=== PATIENT | female | born 2000 | race Caucasian/White ===

== ENCOUNTER 2022-04-19 10:38 | Observation (INO) ==
[2022-04-19 11:22] LABS: Basophils # (auto) 0.02 K/uL (0-0.2); Basophils % (auto) 0.2 %; Eosinophils # (auto) 0.03 K/uL (0-0.50); Eosinophils % (auto) 0.3 %; Hematocrit (blood only) 40.1 % (34.1-44.9); Hemoglobin 13.6 g/dl (12.0-16.0); Immature Granulocytes # (auto) 0.03 K/uL (0.00-0.02); Immature Granulocytes % (auto) 0.3 %; Lymphocytes # (auto) 1.36 K/uL (1.2-3.4); Mean Corpuscular Hemoglobin 30.3 pg (25.0-34.0); Mean Corpuscular Hgb Conc 33.9 g/dL (32.0-36.0); Mean Corpuscular Volume 89.3 fL (80.0-100.0); Mean Platelet Volume 10.6 fL (9.4-12.3); Monocytes % (auto) 5.3 %; Neutrophils # (auto) 9.29 K/uL (1.4-6.5); Neutrophils % (auto) 81.9 %; Platelet Count 259 K/uL (130-400); RDW Standard Deviation 39.6 fL (36.4-46.3); Red Blood Count 4.49 M/uL (3.93-5.22); White Blood Count 11.33 K/ul (4.8-10.8)
[2022-04-19 11:28] LABS: Appearance Urine Clear (Clear); Bacteria Urine Automated 1+ (Negative); Bilirubin Urine Negative (Negative); Blood Urine Negative (Negative); Cast Urine Automated 0 /lpf (0-5); Color Urine Orange; Epithelial Cell Urine Auto >30 /lpf (0-5); Glucose Urine UA Negative (Negative); Ketones Urine Trace (Negative); Leukocyte Esterase Urine Trace (Negative); Nitrite Urine Negative (Negative); Protein Urine Negative (Negative); RBC Urine Automated 0-4 /hpf (0-4); Specific Gravity Urine 1.021 (1.000-1.030); Urobilinogen Urine Negative (Negative)
[2022-04-19 11:42] LABS: Albumin Globulin Ratio 1.5 (0.9-2); Albumin Level 4.6 gm/dl (3.4-5.0); BUN Creatinine Ratio 13.4 (10-20); Bilirubin,Total 1.2 mg/dl (0.2-1.0); Calcium 9.7 mg/dl (8.5-10.1); Creatinine Clr Calc Pharmacy 79.2 ml/min; Est GFR (African American) 96.8 ml/min; Est GFR (Non-African American) 83.5 ml/min; Globulin 3.1 gm/dl (2.5-4.0); Potassium 3.7 mmol/L (3.5-5.1); Total Protein 7.7 gm/dl (6.0-8.3)
[2022-04-19] MEDS ORDERED: SODIUM CHLORIDE 0.9% 1000ML 1,000 ML IV ONE (12:27)
--- NOTE | 2022-04-19 12:29 | Emergency Department Note ---
Impression & Plan Acute appendicitis with localized peritonitis, IBS (irritable bowel syndrome), Leukocytosis ED Provider Note NAME: MICHAEL JEROME AGE: 21 SEX: F : 2000 ARRIVES VIA: Walk-In INFORMANT: Patient ED PROVIDER(S): Kareem Addison DO CHIEF COMPLAINT: abdominal pain HPI: Patient is a 21-year-old female who presents ER for abdominal pain. It has been going on for the past several days. Initially started in the epigastric region and is now in the right lower quadrant. Denies any dysuria, urgency, or frequency. History of IBS. She does feel bloated. Last menstrual period was a week ago. No vaginal bleeding or vaginal discharge. Pain is a 5 out of 10 and constant. Is worse with movement and palpation. No other exacerbating or remitting factors. She has not eaten for nearly 24 hours as she is nauseated. ROS: See above HPI for pertinent positives & negatives. A total of 10 systems reviewed and were otherwise negative. PAST MEDICAL HISTORY:See Below PAST SURGICAL HISTORY:See Below FAMILY HISTORY:See Below SOCIAL HISTORY:See Below HOME MEDICATIONS:See Below ALLERGIES:See Below VITALS:See Below PHYSICAL EXAMINATION: GENERAL: Sitting up in bed, alert, well appearing, well nourished, no distress, non-toxic EYE EXAM: normal conjunctiva. OROPHARYNX: no exudate, no erythema, lips, buccal mucosa, and tongue normal and mucous membranes are moist NECK: supple, no nuchal rigidity, no adenopathy, non-tender LUNGS: Clear to auscultation. Normal chest wall mechanics HEART: no murmurs, S1 normal and S2 normal ABDOMEN: abdomen soft, TTP in RLQ, normo-active bowel sounds, no masses, no rebound or guarding. UPPER EXTREMITIES: upper extremities are grossly normal. LOWER EXTREMITIES: No pitting edema. NEURO EXAM: Normal sensorium, cranial nerves II-XII grossly intact, normal speech, no gross weakness of arms, no gross weakness of legs. MEDICAL DECISION MAKING: Patient is a 21-year-old female who presents ER for right lower quadrant abdominal pain. IV was established blood work was obtained. Labs show mild leukocytosis 11.3 thousand. No significant anemia. BMP along with LFTs and bilirubin was remarkable for slightly elevated T bili. Lipase was normal. UA was clean. was negative. COVID was negative. CT abdomen pelvis shows acute appendicitis. Patient declined pain medications. She was given IV fluids, Zofran and cefoxitin 2 g. She was discussed with Dr. Urbano Thao for further evaluation and taken to the OR for acute appendicitis. Triage Nursing notes reviewed. Limited review of prior medical records performed Vital Signs: reviewed and remarkable for no significant abnormalities Differential diagnosis: Differential diagnoses includes but is not limited to gastritis, peptic ulcer disease, GERD, gallbladder disease, pancreatitis, small bowel obstruction, acute coronary syndrome, pericarditis, ischemic bowel, irritable bowel disease, irritable bowel syndrome, appendicitis, diverticulitis, malignancy, hernia, urinary tract infection, torsion, /ectopic (if female), perforation, trauma, infectious. ER treatment provided: See below Diagnostics interpreted by me: ECG: none Cardiac Monitoring: An order was placed for continuous cardiac monitoring. The monitor shows a rate of 90 with sinus rhythm. Laboratory studies: As stated above and show below. Imaging studies: CT abdomen pelvis shows acute appendicitis Consultation(s): Discussed with Urbano Thao who evaluate the patient at bedside and took the patient to the OR Procedures: none Critical Care: None Past Med/Surg History Medical History (Updated 04/19/22 @ 15:54 by Kraeem Addison DO) IBS (irritable bowel syndrome) Surgical History (Updated 04/19/22 @ 14:52 by Shree Randle MD) No significant past surgical history Social History Smoking Status: Never smoker Preferred Language: Pashto Feels Safe at Home: Yes Results & Data (ED) Vital Signs Vital Signs - 24 hr 04/19/22 10:48 04/19/22 12:39 04/19/22 14:52 Temperature 36.8 C 36.7 C 36.9 C Temperature Source Temporal Artery Scan Oral Oral Pulse Rate 93 H Pulse Rate [Finger] 83 65 Pulse Rhythm [Finger] Regular Pulse Strength [Finger] Normal Respiratory Rate 20 18 18 Respiratory Effort / Characteristics Non-Labored Spontaneous Respiratory Depth Normal Respiratory Pattern Regular Blood Pressure 142/91 H Blood Pressure [Right Arm] 134/81 117/79 Blood Pressure Mean 108 Blood Pressure Mean [Right Arm] 98 91 Blood Pressure Position Sitting Blood Pressure Position [Right Arm] Semi-fowlers Pulse Oximetry 96 98 100 Oxygen Delivery Method Room Air Room Air Room Air Sepsis Recent Fever Within 48 Hours No Sepsis New/Unexplained Change in Mental Status No Sepsis Action Taken by Nursing No Action Required Laboratory Data Result diagrams: 04/19/22 11:07 04/19/22 11:07 Lab Results 04/19/22 04/19/22 04/19/22 Range/Units 11:07 11:07 11:07 WBC 11.33 H (4.8-10.8) K/ul RBC 4.49 (3.93-5.22) M/uL Hgb 13.6 (12.0-16.0) g/dl Hct 40.1 (34.1-44.9) % MCV 89.3 (80.0-100.0) fL MCH 30.3 (25.0-34.0) pg MCHC 33.9 (32.0-36.0) g/dL RDW Std Deviation 39.6 (36.4-46.3) fL RDW Coeff of Jayme 12.0 (11.5-14.5) % Plt Count 259 (130-400) K/uL MPV 10.6 (9.4-12.3) fL Immature Gran % (Auto) 0.3 % Neut % (Auto) 81.9 % Lymph % (Auto) 12.0 % [place] % (Auto) 5.3 % Eos % (Auto) 0.3 % Baso % (Auto) 0.2 % Neut # (Auto) 9.29 H (1.4-6.5) K/uL Lymph # (Auto) 1.36 (1.2-3.4) K/uL [place] # (Auto) 0.60 (0.24-0.82) K/uL Eos # (Auto) 0.03 (0-0.50) K/uL Baso # (Auto) 0.02 (0-0.2) K/uL Immature Gran # (Auto) 0.03 H (0.00-0.02) K/uL Sodium 137 (136-145) mmol/L Potassium 3.7 (3.5-5.1) mmol/L Chloride 101 (98-107) mmol/L Carbon Dioxide 28 (21-32) mmol/L Anion Gap 8 (3-11) BUN 13 (6-23) mg/dl Creatinine 0.97 (0.6-1.2) mg/dl Est Cr Clr Drug Dosing 79.2 ml/min Est GFR ( Amer) 96.8 ml/min Est GFR (Non-Af Amer) 83.5 ml/min BUN/Creatinine Ratio 13.4 (10-20) Glucose 84 (70-99(Fasting)) mg/dl Calcium 9.7 (8.5-10.1) mg/dl Total Bilirubin 1.2 H (0.2-1.0) mg/dl AST 21 (13-39) U/L ALT 14 (7-52) U/L Alkaline Phosphatase 36 (34-104) U/L Total Protein 7.7 (6.0-8.3) gm/dl Albumin 4.6 (3.4-5.0) gm/dl Globulin 3.1 (2.5-4.0) gm/dl Albumin/Globulin Ratio 1.5 (0.9-2) Lipase 11 (11-82) U/L Urine Color [place] Urine Appearance Clear (Clear) Urine pH 7.0 (4.5-7.5) Ur Specific [place] 1.021 (1.000-1.030) Urine Protein Negative (Negative) Urine Glucose (UA) Negative (Negative) Urine Ketones Trace H (Negative) Urine Blood Negative (Negative) Urine Nitrite Negative (Negative) Urine Bilirubin Negative (Negative) Urine Urobilinogen Negative (Negative) Ur Leukocyte Esterase Trace H (Negative) Urine WBC (Auto) 1-5 (0-5) /hpf Urine RBC (Auto) 0-4 (0-4) /hpf U Hyaline Cast (Auto) 0 (0-5) /lpf U Epithel Cells (Auto) >30 H (0-5) /lpf Urine Bacteria (Auto) 1+ H (Negative) POC Ur Test (NEG) SARS-CoV-2, RNA, NAAT (NEGATIVE) 04/19/22 04/19/22 Range/Units 11:07 13:44 WBC (4.8-10.8) K/ul RBC (3.93-5.22) M/uL Hgb (12.0-16.0) g/dl Hct (34.1-44.9) % MCV (80.0-100.0) fL MCH (25.0-34.0) pg MCHC (32.0-36.0) g/dL RDW Std Deviation (36.4-46.3) fL RDW Coeff of Jayme (11.5-14.5) % Plt Count (130-400) K/uL MPV (9.4-12.3) fL Immature Gran % (Auto) % Neut % (Auto) % Lymph % (Auto) % [place] % (Auto) % Eos % (Auto) % Baso % (Auto) % Neut # (Auto) (1.4-6.5) K/uL Lymph # (Auto) (1.2-3.4) K/uL [place] # (Auto) (0.24-0.82) K/uL Eos # (Auto) (0-0.50) K/uL Baso # (Auto) (0-0.2) K/uL Immature Gran # (Auto) (0.00-0.02) K/uL Sodium (136-145) mmol/L Potassium (3.5-5.1) mmol/L Chloride (98-107) mmol/L Carbon Dioxide (21-32) mmol/L Anion Gap (3-11) BUN (6-23) mg/dl Creatinine (0.6-1.2) mg/dl Est Cr Clr Drug Dosing ml/min Est GFR ( Amer) ml/min Est GFR (Non-Af Amer) ml/min BUN/Creatinine Ratio (10-20) Glucose (70-99(Fasting)) mg/dl Calcium (8.5-10.1) mg/dl Total Bilirubin (0.2-1.0) mg/dl AST (13-39) U/L ALT (7-52) U/L Alkaline Phosphatase (34-104) U/L Total Protein (6.0-8.3) gm/dl Albumin (3.4-5.0) gm/dl Globulin (2.5-4.0) gm/dl Albumin/Globulin Ratio (0.9-2) Lipase (11-82) U/L Urine Color Urine Appearance (Clear) Urine pH (4.5-7.5) Ur Specific [place] (1.000-1.030) Urine Protein (Negative) Urine Glucose (UA) (Negative) Urine Ketones (Negative) Urine Blood (Negative) Urine Nitrite (Negative) Urine Bilirubin (Negative) Urine Urobilinogen (Negative) Ur Leukocyte Esterase (Negative) Urine WBC (Auto) (0-5) /hpf Urine RBC (Auto) (0-4) /hpf U Hyaline Cast (Auto) (0-5) /lpf U Epithel Cells (Auto) (0-5) /lpf Urine Bacteria (Auto) (Negative) POC Ur Test NEG (NEG) SARS-CoV-2, RNA, NAAT NEGATIVE (NEGATIVE) Administered Medications Discontinued Medications Sodium Chloride (Nss 1000ml) 1,000 mls @ 999 mls/hr IV .Q1H1M ONE Stop: 04/19/22 13:27 Last Infusion: 04/19/22 14:07 Dose: 0 mls/hr Documented By: Admin: 04/19/22 12:33 Dose: 999 mls/hr Documented By: HEIDI Cefoxitin Sodium (Mefoxin) 2,000 mg in 60 mls @ 100 mls/hr IV NOW STA Stop: 04/19/22 14:02 Last Infusion: 04/19/22 14:07 Dose: 0 mls/hr Documented By: Admin: 04/19/22 13:42 Dose: 100 mls/hr Documented By: HEIDI Ioversol (Optiray 300 500ml) 100 ml IV ONCE ONE Stop: 04/19/22 13:01 Last Admin: 04/19/22 13:01 Dose: 90 ml Documented By: TASIA Imaging Data Radiologist's Impression: Abdomen/Pelvis CT 04/19/22 12:25 CT SCAN OF THE ABDOMEN AND PELVIS WITH IV CONTRAST CLINICAL HISTORY: Right lower quadrant abdominal pain. COMPARISON STUDY: No priors. TECHNIQUE: Following the IV administration of 90 cc of Optiray 300, CT scan of the abdomen and pelvis is performed from the lung bases to the proximal femora. Images are reviewed in the axial, sagittal, and coronal planes. IV contrast was administered without complication. A dose lowering technique was utilized adhering to the principles of ALARA. CT DOSE: 362.36 mGycm FINDINGS: Lung bases: The heart is normal in size and without pericardial effusion. The lung bases are clear. Liver: The contrast-enhanced liver is normal in size, contour, and attenuation. There is no intrahepatic biliary ductal dilatation. The hepatic veins and portal veins are patent. Gallbladder: Unremarkable. Spleen: Normal in size and attenuation. Pancreas: Unremarkable. Adrenal glands: Unremarkable. Kidneys: The contrast enhanced kidneys are normal in size and without hydronephrosis. The kidneys enhance symmetrically. Abdominal vasculature: The abdominal aorta is normal in course and caliber. Bowel: The small bowel and colon are normal in course and caliber. The appendix is dilated and fluid-filled, measuring up to 11 mm in diameter as seen on image #302. The appendiceal wall is thickened and hyperemic and there is periappendiceal inflammation. The appearance is typical for acute appendicitis. No organized fluid collection is seen to indicate abscess. Peritoneum: There is no intraperitoneal free air or abdominal ascites. There is a small fat-containing umbilical hernia. Lymphadenopathy: None. Pelvic viscera: The bladder, uterus, and adnexa are normal as visualized noting bilateral ovarian follicles. A small volume of free fluid is seen in the cul-de-sac. Skeletal structures: No lytic or blastic lesions are seen. IMPRESSION: 1. Findings are consistent with acute appendicitis. 2. There is no evidence of abscess or perforation. 3. Free fluid in cul-de-sac is nonspecific and likely within physiologic limits. ACT 112: Negative or not required by law. Electronically signed by: Mauricio Harden M.D. 04/19/2022 1:11 PM Discharge Plan Visit Data Chief Complaint: Abdominal Pain Stated Complaint: LRQ PAIN, VOMITING, PRIOR UPPDER ABDOM PAIN ED Provider: Kareem Addison Discharge Problem: Acute appendicitis with localized peritonitis, IBS (irritable bowel syndrome), Leukocytosis Discharge Instructions Interventions: ED Discharge Assessment Last Done: 04/19/22 14:35
[2022-04-19] MEDS ORDERED: OPTIRAY 300 500mL IV ONE (13:00)
--- NOTE | 2022-04-19 13:13 | CT Scan Report ---
CT SCAN OF THE ABDOMEN AND PELVIS WITH IV CONTRAST CLINICAL HISTORY: Right lower quadrant abdominal pain. COMPARISON STUDY: No priors. TECHNIQUE: Following the IV administration of 90 cc of Optiray 300, CT scan of the abdomen and pelvi s is performed from the lung bases to the proximal femora. Images are reviewed in the axial, sagittal , and coronal planes. IV contrast was administered without complication. A dose lowering technique wa s utilized adhering to the principles of ALARA. CT DOSE: 362.36 mGycm FINDINGS: Lung bases: The heart is normal in size and without pericardial effusion. The lung bases are clear. Liver: The contrast-enhanced liver is normal in size, contour, and attenuation. There is no intrahepa tic biliary ductal dilatation. The hepatic veins and portal veins are patent. Gallbladder: Unremarkable. Spleen: Normal in size and attenuation. Pancreas: Unremarkable. Adrenal glands: Unremarkable. Kidneys: The contrast enhanced kidneys are normal in size and without hydronephrosis. The kidneys enh ance symmetrically. Abdominal vasculature: The abdominal aorta is normal in course and caliber. Bowel: The small bowel and colon are normal in course and caliber. The appendix is dilated and fluid -filled, measuring up to 11 mm in diameter as seen on image #302. The appendiceal wall is thickened a nd hyperemic and there is periappendiceal inflammation. The appearance is typical for acute appendici tis. No organized fluid collection is seen to indicate abscess. Peritoneum: There is no intraperitoneal free air or abdominal ascites. There is a small fat-containin g umbilical hernia. Lymphadenopathy: None. Pelvic viscera: The bladder, uterus, and adnexa are normal as visualized noting bilateral ovarian fol licles. A small volume of free fluid is seen in the cul-de-sac. Skeletal structures: No lytic or blastic lesions are seen. IMPRESSION: 1. Findings are consistent with acute appendicitis. 2. There is no evidence of abscess or perforation. 3. Free fluid in cul-de-sac is nonspecific and likely within physiologic limits. ACT 112: Negative or not required by law. Electronically signed by: Mauricio Harden M.D. 04/19/2022 1:11 PM
[2022-04-19] MEDS ORDERED: cefOXitin 2,000 MG/60 ML BAG IV STA (13:27)
--- NOTE | 2022-04-19 14:21 | History & Physical Report ---
Date of Service April 19, 2022 Assessment & Plan (1) Acute appendicitis with localized peritonitis: Plan 21-year-old woman with acute appendicitis. I discussed with her the risks and benefits of laparoscopic appendectomy. We discussed the postoperative course and restrictions. All her questions were answered, and she is agreeable to proceed. We will take her to the operating room at the earliest convenience. Consent has been obtained. COVID test has been obtained. She has allergies to penicillin and Bactrim. History of Present Illness Primary Care Provider: Kvng Altman MD 21-year-old woman presents with 1 day history of upper abdominal pain subsequently localizing to the lower abdomen and specifically on the right. The pain started yesterday afternoon. It was accompanied by nausea and vomiting. It started fairly suddenly. Overnight it localized to the lower right side. Currently she has right-sided lower abdominal pain. She denies fevers and chills. She denies nausea at this time. Her last meal was 24 hours ago. White blood cell count 11. CT scan demonstrates acute appendicitis without perforation. She denies chest pain or shortness of breath. Past Med/Surg History Social History Smoking Status: Never smoker Preferred Language: Sudanese Feels Safe at Home: Yes Review of Systems Review of Systems: All systems reviewed & are unremarkable except as noted in HPI & below Physical Exam Constitutional: WD/WN, vitals as above Neck: trachea midline, no thyromegaly Respiratory: normal respiratory effort, lungs clear to auscultation Cardiovascular: RRR, no murmur, no edema Gastrointestinal (Abdomen): Inspection/Auscultation: abdomen normal to inspection; abdomen not distended Percussion/Palpation: + abdomen tender (Right lower quadrant, positive Rovsing sign) and abdomen soft; no guarding and abdomen not rigid Musculoskeletal: Extremities: no cyanosis and no clubbing Skin: no rashes, warm and dry Psychiatric: A+Ox3, euthymic affect Results & Data Results & Data ([facility]) Vital Signs (Past 12 Hours) Vital Signs Temp Pulse Resp BP Pulse Ox O2 Del Method 04/19/22 10:48 36.8 C 93 H 20 142/91 H 96 Room Air Laboratory Results 04/19/22 04/19/22 04/19/22 Range/Units 13:44 11:07 11:07 WBC (4.8-10.8) K/ul RBC (3.93-5.22) M/uL Hgb (12.0-16.0) g/dl Hct (34.1-44.9) % MCV (80.0-100.0) fL MCH (25.0-34.0) pg MCHC (32.0-36.0) g/dL RDW Std Deviation (36.4-46.3) fL RDW Coeff of Jayme (11.5-14.5) % Plt Count (130-400) K/uL MPV (9.4-12.3) fL Immature Gran % (Auto) % Neut % (Auto) % Lymph % (Auto) % [place] % (Auto) % Eos % (Auto) % Baso % (Auto) % Neut # (Auto) (1.4-6.5) K/uL Lymph # (Auto) (1.2-3.4) K/uL [place] # (Auto) (0.24-0.82) K/uL Eos # (Auto) (0-0.50) K/uL Baso # (Auto) (0-0.2) K/uL Immature Gran # (Auto) (0.00-0.02) K/uL Sodium (136-145) mmol/L Potassium (3.5-5.1) mmol/L Chloride (98-107) mmol/L Carbon Dioxide (21-32) mmol/L Anion Gap (3-11) BUN (6-23) mg/dl Creatinine (0.6-1.2) mg/dl Est Cr Clr Drug Dosing ml/min Est GFR ( Amer) ml/min Est GFR (Non-Af Amer) ml/min BUN/Creatinine Ratio (10-20) Glucose (70-99(Fasting)) mg/dl Calcium (8.5-10.1) mg/dl Total Bilirubin (0.2-1.0) mg/dl AST (13-39) U/L ALT (7-52) U/L Alkaline Phosphatase (34-104) U/L Total Protein (6.0-8.3) gm/dl Albumin (3.4-5.0) gm/dl Globulin (2.5-4.0) gm/dl Albumin/Globulin Ratio (0.9-2) Lipase (11-82) U/L Urine Color [place] Urine Appearance Clear (Clear) Urine pH 7.0 (4.5-7.5) Ur Specific [place] 1.021 (1.000-1.030) Urine Protein Negative (Negative) Urine Glucose (UA) Negative (Negative) Urine Ketones Trace H (Negative) Urine Blood Negative (Negative) Urine Nitrite Negative (Negative) Urine Bilirubin Negative (Negative) Urine Urobilinogen Negative (Negative) Ur Leukocyte Esterase Trace H (Negative) Urine WBC (Auto) 1-5 (0-5) /hpf Urine RBC (Auto) 0-4 (0-4) /hpf U Hyaline Cast (Auto) 0 (0-5) /lpf U Epithel Cells (Auto) >30 H (0-5) /lpf Urine Bacteria (Auto) 1+ H (Negative) POC Ur Test NEG (NEG) SARS-CoV-2, RNA, NAAT Pending 04/19/22 04/19/22 Range/Units 11:07 11:07 WBC 11.33 H (4.8-10.8) K/ul RBC 4.49 (3.93-5.22) M/uL Hgb 13.6 (12.0-16.0) g/dl Hct 40.1 (34.1-44.9) % MCV 89.3 (80.0-100.0) fL MCH 30.3 (25.0-34.0) pg MCHC 33.9 (32.0-36.0) g/dL RDW Std Deviation 39.6 (36.4-46.3) fL RDW Coeff of Jayme 12.0 (11.5-14.5) % Plt Count 259 (130-400) K/uL MPV 10.6 (9.4-12.3) fL Immature Gran % (Auto) 0.3 % Neut % (Auto) 81.9 % Lymph % (Auto) 12.0 % [place] % (Auto) 5.3 % Eos % (Auto) 0.3 % Baso % (Auto) 0.2 % Neut # (Auto) 9.29 H (1.4-6.5) K/uL Lymph # (Auto) 1.36 (1.2-3.4) K/uL [place] # (Auto) 0.60 (0.24-0.82) K/uL Eos # (Auto) 0.03 (0-0.50) K/uL Baso # (Auto) 0.02 (0-0.2) K/uL Immature Gran # (Auto) 0.03 H (0.00-0.02) K/uL Sodium 137 (136-145) mmol/L Potassium 3.7 (3.5-5.1) mmol/L Chloride 101 (98-107) mmol/L Carbon Dioxide 28 (21-32) mmol/L Anion Gap 8 (3-11) BUN 13 (6-23) mg/dl Creatinine 0.97 (0.6-1.2) mg/dl Est Cr Clr Drug Dosing 79.2 ml/min Est GFR ( Amer) 96.8 ml/min Est GFR (Non-Af Amer) 83.5 ml/min BUN/Creatinine Ratio 13.4 (10-20) Glucose 84 (70-99(Fasting)) mg/dl Calcium 9.7 (8.5-10.1) mg/dl Total Bilirubin 1.2 H (0.2-1.0) mg/dl AST 21 (13-39) U/L ALT 14 (7-52) U/L Alkaline Phosphatase 36 (34-104) U/L Total Protein 7.7 (6.0-8.3) gm/dl Albumin 4.6 (3.4-5.0) gm/dl Globulin 3.1 (2.5-4.0) gm/dl Albumin/Globulin Ratio 1.5 (0.9-2) Lipase 11 (11-82) U/L Urine Color Urine Appearance (Clear) Urine pH (4.5-7.5) Ur Specific [place] (1.000-1.030) Urine Protein (Negative) Urine Glucose (UA) (Negative) Urine Ketones (Negative) Urine Blood (Negative) Urine Nitrite (Negative) Urine Bilirubin (Negative) Urine Urobilinogen (Negative) Ur Leukocyte Esterase (Negative) Urine WBC (Auto) (0-5) /hpf Urine RBC (Auto) (0-4) /hpf U Hyaline Cast (Auto) (0-5) /lpf U Epithel Cells (Auto) (0-5) /lpf Urine Bacteria (Auto) (Negative) POC Ur Test (NEG) SARS-CoV-2, RNA, NAAT Diagnostic Findings CT SCAN OF THE ABDOMEN AND PELVIS WITH IV CONTRAST CLINICAL HISTORY: Right lower quadrant abdominal pain. COMPARISON STUDY: No priors. TECHNIQUE: Following the IV administration of 90 cc of Optiray 300, CT scan of the abdomen and pelvis is performed from the lung bases to the proximal femora. Images are reviewed in the axial, sagittal, and coronal planes. IV contrast was administered without complication. A dose lowering technique was utilized adhering to the principles of ALARA. CT DOSE: 362.36 mGycm FINDINGS: Lung bases: The heart is normal in size and without pericardial effusion. The lung bases are clear. Liver: The contrast-enhanced liver is normal in size, contour, and attenuation. There is no intrahepatic biliary ductal dilatation. The hepatic veins and portal veins are patent. Gallbladder: Unremarkable. Spleen: Normal in size and attenuation. Pancreas: Unremarkable. Adrenal glands: Unremarkable. Kidneys: The contrast enhanced kidneys are normal in size and without hydronephrosis. The kidneys enhance symmetrically. Abdominal vasculature: The abdominal aorta is normal in course and caliber. Bowel: The small bowel and colon are normal in course and caliber. The appendix is dilated and fluid-filled, measuring up to 11 mm in diameter as seen on image #302. The appendiceal wall is thickened and hyperemic and there is periappendiceal inflammation. The appearance is typical for acute appendicitis. No organized fluid collection is seen to indicate abscess. Peritoneum: There is no intraperitoneal free air or abdominal ascites. There is a small fat-containing umbilical hernia. Lymphadenopathy: None. Pelvic viscera: The bladder, uterus, and adnexa are normal as visualized noting bilateral ovarian follicles. A small volume of free fluid is seen in the cul-de-sac. Skeletal structures: No lytic or blastic lesions are seen. IMPRESSION: 1. Findings are consistent with acute appendicitis. 2. There is no evidence of abscess or perforation. 3. Free fluid in cul-de-sac is nonspecific and likely within physiologic limits.
--- NOTE | 2022-04-19 14:53 | Anesthesiology Consultation ---
Date of Service April 19, 2022 Assessment & Plan (1) Encounter for pre-operative examination: Chart Review Chart Review: Acceptable Risk for Surgery History Surgery Operation Date: 04/19/22 10:15 Proposed Procedures p Laparoscopic Appendectomy - Slava Thao MD Height/Weight Height: 5 ft 4 in Weight: 61.6 kg Past Medical History Medical History (Updated 04/19/22 @ 14:53 by Shree Randle MD) IBS (irritable bowel syndrome) Past Surgical History Surgical History (Updated 04/19/22 @ 14:52 by Shree Randle MD) No significant past surgical history Social History Smoking Status: Never smoker Physical Exam Vital Signs Last Vital Signs Temp 36.7 C 04/19/22 12:39 Pulse 83 04/19/22 12:39 Resp 18 04/19/22 12:39 BP 134/81 04/19/22 12:39 Pulse Ox 98 04/19/22 12:39 O2 Del Method 04/19/22 12:39 Testing Laboratory Results 04/19/22 11:07 04/19/22 11:07 Urine Color [place] 04/19/22 11:07 Urine Appearance Clear (Clear) 04/19/22 11:07 Urine pH 7.0 (4.5-7.5) 04/19/22 11:07 Ur Specific [place] 1.021 (1.000-1.030) 04/19/22 11:07 Urine Protein Negative (Negative) 04/19/22 11:07 Urine Glucose (UA) Negative (Negative) 04/19/22 11:07 Urine Ketones Trace (Negative) H 04/19/22 11:07 Urine Nitrite Negative (Negative) 04/19/22 11:07 Ur Leukocyte Esterase Trace (Negative) H 04/19/22 11:07 Urine WBC (Auto) 1-5 /hpf (0-5) 04/19/22 11:07 Urine RBC (Auto) 0-4 /hpf (0-4) 04/19/22 11:07 U Hyaline Cast (Auto) 0 /lpf (0-5) 04/19/22 11:07 U Epithel Cells (Auto) >30 /lpf (0-5) H 04/19/22 11:07 Urine Bacteria (Auto) 1+ (Negative) H 04/19/22 11:07 04/19/22 11:07 POC Ur Test NEG
[2022-04-19] MEDS ORDERED: BUPIVACAINE 0.5 % 5 MG/1 ML MPF 30ML VIAL ONE (15:02)
[2022-04-19] MEDS ORDERED: EPINEPHrine INJ 1 MG/ML AMP ONE (15:02)
[2022-04-19] MEDS ORDERED: fentaNYL citrate 100 MCG/2 ML VIAL ONE ×3 (15:03→16:06)
[2022-04-19] MEDS ORDERED: MIDAZOLAM HCL 1 MG/ML 2ML VIAL ONE (15:03)
[2022-04-19] MEDS ORDERED: ACETAMINOPHEN 1000 MG/100 ML IV IV ONE (15:08)
[2022-04-19] MEDS ORDERED: FAMOTIDINE/PF 20 MG/2 ML VIAL IV ONE (15:08)
[2022-04-19] MEDS ORDERED: SCOPOLAMINE 1 MG TDSY TD ONE (15:08)
[2022-04-19] MEDS ORDERED: LIDOCAINE 2% MPF LOCAL 5 ML VIAL INFIL ONE (15:10)
[2022-04-19] MEDS ORDERED: PROPOFOL IV EMULSION 10 MG/ML 20 ML VIAL IV ONE (15:10)
[2022-04-19] MEDS ORDERED: METOCLOPRAMIDE HCL INJ 5 MG/ML 2 ML VIAL ONE (15:10)
[2022-04-19] MEDS ORDERED: ONDANSETRON INJ 2 MG/ML 2 ML VIAL ONE (15:10)
[2022-04-19] MEDS ORDERED: SUCCINYLCHOLINE CHLORIDE 20 MG/ML 10 ML VIAL IV ONE (15:10)
[2022-04-19] MEDS ORDERED: DEXAMETHASONE SOD INJ 4 MG/ML VIAL ONE (15:10)
[2022-04-19] MEDS ORDERED: ATROPINE SULFATE 0.1 MG/ML 10ML SYR IV PRN (15:12)
[2022-04-19] MEDS ORDERED: ePHEDrine sulfate 50 MG/ML AMP IV PRN (15:12)
[2022-04-19] MEDS ORDERED: ONDANSETRON INJ 2 MG/ML 2 ML VIAL IV PRN ×2 (15:12→17:41)
[2022-04-19] MEDS ORDERED: HYDROmorphone INJ 2 MG/ML SYR/VIAL IV PRN (15:12)
[2022-04-19] MEDS ORDERED: fentaNYL citrate 100 MCG/2 ML VIAL IV PRN (15:12)
[2022-04-19] MEDS ORDERED: GLYCOPYRROLATE 0.2 MG/ML VIAL ONE (15:56)
[2022-04-19] MEDS ORDERED: NEOSTIGMINE METHYLSULFATE 1 MG/ML 10ML VIAL ONE (15:56)
[2022-04-19] MEDS ORDERED: ROCURONIUM BROMIDE 10 MG/ML 5 ML VIAL IV ONE (16:04)
[2022-04-19] MEDS ORDERED: KETOROLAC 30 MG/ML VIAL ONE (16:05)
--- NOTE | 2022-04-19 16:33 | Operative Report ---
Post Operative Report Pre & Post Diagnosis Operation Date: 04/19/22 10:15 Pre-Op Diagnosis: Acute appendicitis with localized peritonitis Post-Op Diagnosis: Acute appendicitis with localized peritonitis I identified the patient and participated in the time-out.: Yes Procedure Operation Date: 04/19/22 10:15 Actual Procedures p Laparoscopic Appendectomy(Not Applicable) - Slava Thao MD Surgeon Slava Thao MD Chemist Assistant None Estimated Blood Loss 5 Findings Consistent with Post-Op Diagnosis Acute appendicitis Specimens Appendix Drains None Anesthesia Type General Complications No immediate complications Description of Procedure The patient was taken to the operating room, and placed supine on the operating table. A timeout was performed, perioperative antibiotics were administered, SCD boots were placed. After adequate anesthesia and analgesia was obtained, the abdomen was prepped and draped in the normal sterile fashion. A 1 cm incision was made in the supraumbilical region and carried down to the level of the fascia. A trach hook was used to grasp the fascia and elevated and a varies needle was used to enter the abdominal cavity. The abdomen was insufflated to a pressure of 15 mmHg, and a 5 mm trocar was placed in this location. A 5 mm 30 degree laparoscope was placed into the abdominal cavity, and the abdomen was surveyed. The patient was placed in Trendelenburg and slightly to the left. One 5 mm trocar was placed in the right upper quadrant, and one 12 mm trocar was placed in the left lower quadrant under direct visualization. The right colon was identified and traced down to the cecum. The appendix was identified and elevated anteriorly and medially. A window was created at the base of the appendix with a [place] dissector. The Endo ZARIA stapler was used to transect the appendix at its base through noninflamed tissue, and subsequently the mesoappendix. The appendix was placed in an Endo Catch bag, and removed via the left lower quadrant port site. Attention was turned to hemostasis, which was excellent. The abdomen was copiously irrigated and suctioned free, and again hemostasis was found to be excellent. All trochars removed under direct visualization. The abdomen was desufflated. The fascia in the 12 mm port site was closed with a 0 Vicryl suture. The skin was closed with a running 4-0 Monocryl subcuticular stitch. Dermabond was applied. The patient tolerated the procedure without complication, and was transferred in stable condition to the PACU. All instrument, needle, and sponge counts were correct at the end of the case. I attest to the content of the Intraoperative Record and any orders documented therein. Any exceptions are noted below.
--- NOTE | 2022-04-19 16:48 | Anesthesiology Progress Note ---
Date of Service April 19, 2022 Anesthesia Post Procedure Vital Signs Vital Signs: Temp Pulse Pulse Resp BP BP Pulse Ox 04/19/22 16:35 74 16 118/70 100 04/19/22 16:26 36.7 C 83 16 123/59 L 100 04/19/22 14:52 36.9 C 65 18 117/79 100 04/19/22 12:39 36.7 C 83 18 134/81 98 04/19/22 10:48 36.8 C 93 H 20 142/91 H 96 O2 Del Method O2 Flow Rate 04/19/22 16:35 Oxymask 5 04/19/22 16:26 Oxymask 7 04/19/22 14:52 Room Air 04/19/22 12:39 Room Air 04/19/22 10:48 Room Air Pain Intensity Right Lower Abdomen: Pain Intensity: 0 Transfer of Care Handoff Completed per policy Notes Mental Status: alert / awake / arousable and participated in evaluation Patient Amnestic to Procedure: Yes Nausea / Vomiting: adequately controlled Pain: adequately controlled Airway Patency, RR, SpO2: stable & adequate BP & HR: stable & adequate Hydration State: stable & adequate Anesthetic Complications: no major complications apparent and Pt Satisfied with anesthetic care
[2022-04-19] MEDS ORDERED: MoRPHine SULFATE 2 MG/ML CARP IV PRN (17:41)
[2022-04-19] MEDS ORDERED: PROMETHAZINE HCL 12.5 MG in SODIUM CHLORIDE 0.9% 50 ML IV PRN (17:41)
[2022-04-19] MEDS ORDERED: oxyCODONE/ACETAMINOPHEN 5mg/325mg TAB PO PRN (17:41)
[2022-04-19] MEDS: KETOROLAC 30 MG/ML VIAL IV PRN (18:46)
[2022-04-20] MEDS: KETOROLAC 30 MG/ML VIAL IV PRN (00:35)
[2022-04-20] MEDS ORDERED: ENOXAPARIN INJ 40 MG/0.4 ML SYR SQ SCH (07:00)
--- NOTE | 2022-04-20 08:55 | Discharge Summary ---
Date of Service April 20, 2022 Admission HPI Per Admitting Provider 21-year-old woman presents with 1 day history of upper abdominal pain subsequently localizing to the lower abdomen and specifically on the right. The pain started yesterday afternoon. It was accompanied by nausea and vomiting. It started fairly suddenly. Overnight it localized to the lower right side. Currently she has right-sided lower abdominal pain. She denies fevers and chills. She denies nausea at this time. Her last meal was 24 hours ago. White blood cell count 11. CT scan demonstrates acute appendicitis without perforation. She denies chest pain or shortness of breath. Principal Diagnosis Acute appendicitis Discharge Exam Constitutional WD/WN, vitals as above Neck trachea midline, no thyromegaly Respiratory normal respiratory effort, lungs clear to auscultation Cardiovascular RRR, no murmur, no edema Gastrointestinal (Abdomen) Inspection/Auscultation: abdomen normal to inspection; abdomen not distended Percussion/Palpation: + abdomen tender (Mild generalized) and abdomen soft; no guarding and abdomen not rigid Musculoskeletal Extremities: no cyanosis and no clubbing Skin no rashes, warm and dry Psychiatric A+Ox3, euthymic affect Discharge Data Allergies Allergy/AdvReac Type Severity Reaction Status Date / Time amoxicillin Allergy Verified 04/19/22 16:28 Penicillins Allergy Verified 04/19/22 16:29 sulfamethoxazole Allergy Verified 04/19/22 16:29 [From Bactrim] trimethoprim [From Bactrim] Allergy Verified 04/19/22 16:29 Consultations 04/19/22 13:27 ED Decision to Admit Stat Procedures Performed Operation Date: 04/19/22 10:15 Actual Procedures p Laparoscopic Appendectomy(Not Applicable) - Slava Thao MD Ordered Studies 04/19/22 12:25 CT Abd and Pelvis [CT abd pelvis IV con only] Stat Hospital Course (1) Acute appendicitis with localized peritonitis: 21-year-old woman presents to the emergency department with acute appendicitis. She was taken to the operating room for laparoscopic appendectomy, the details of which are dictated in a separate operative note. Postoperatively she did well and was transferred in stable condition first to the PACU and subsequently to the floor. Her diet was advanced as tolerated. Her pain was controlled with IV and oral pain medications. DVT prophylaxis with SCD boots and Lovenox. Early ambulation encouraged. By the date of discharge, she was tolerating a regular diet, not requiring any IV pain medications, and was discharged home in stable condition. She will follow-up in clinic in 2 weeks. Total Time Total Time Spent Total Time Spent (In Minutes): 30 minutes Discharge Plan Discharge Items Patient Disposition: Home - Self-Care Reason For Visit: ACUTE APPENDICITIS Discharge Diagnosis: Acute appendicitis Activity: Per Instructions section Lifting: No more than 25 pounds Sexual Activity: Wait until after follow-up appointment Exercise/Sports: Wait until after follow-up appointment Driving/Machine Use: Resume 3 days after discharge Non-emergency contact: Surgeon Call non-emergency contact if: you have any medication questions, your symptoms worsen, your pain is not controlled, your pain is worsening, your pain is unusual for you, your pain is concerning for you, your temperature is above 101.5, your wound has increased redness, your wound has increased drainage and your wound pain has increased Follow-up/Referrals: Slava Thao MD [Physician] - 05/04/22 11:15 am PCP,NO [Physician] - Diet: Regular Addtl Attending Provider Instructions: Post-Surgical ~Discharge Instructions Activity Recommendations: - lifting limitation: (20 pounds for 2 weeks), - exercise/sex/sports limit: (nonstrenuous for 2 weeks), - driving or machine use limit: (none for 1 week), - Shower/bathe limit: (may shower beginning tomorrow) Diet: - Resume previous diet SPECIAL CARE INSTRUCTIONS: - May shower in 24 hours. Let water run over area and pat dry. - Leave Dermabond in place. - Call the surgeon's office with any questions or concerns - - (ex. temperature higher than 101 degrees F, excessive bleeding or pain). MEDICATIONS: - Resume previous medications unless instructed otherwise by your surgeon. - Ibuprofen 600 mg every 6 hours with food - Percocet 1 every 4 hours, as needed for pain FOLLOW UP VISIT: - If not already scheduled, please call the office to schedule a two week follow-up appointment. Office number Pending Studies at Discharge: No Stand-Alone Forms: [facility], Smoking Cessation Medications and DC Order Prescriptions: New oxycodone-acetaminophen [Percocet] 5-325 mg tablet 1 tab PO Q6H PRN (Reason: pain) Qty: 10 0RF Discharge Orders: Discharge Order (Routine); Ordered 04/20/22 Ordered By: Slava Thao Admission Data Admit Date/Time: 04/19/22 16:36 Attending Provider: Slava Thao Admit Provider: Slava Thao Primary Care Provider: Kvng Altman Other Providers: Slava Thao
== END 2022-04-20 10:40 | disposition home or self-care (01) ==
LOC: ED 10:38 → 3E 14:59 → ASU 14:59